=== PATIENT | female | born 1990 | race Caucasian/White ===

== ENCOUNTER → 2020-10-12 | Outpatient (CLI) | payer OTHER ==
[~2020-10-12] MED LIST: CLINORIL 150 M150 MG PO; COLACE 100MG C100 MG PO; FERROUS SULFAT325 M2 PO; IBUPROFEN600 MG PO; LODINE CAP 300300 MG PO; LORTAB 5-325 M1 EACH PO; NAPROSYN500 MG PO
== END ==
LOC: EXRD 11:30
DX: E04.9 Nontoxic goiter, unspecified (principal)
CPT/HCPCS: 76536

== ENCOUNTER → 2021-08-12 | Outpatient (CLI) | payer OTHER | LOC: LAB 15:21 | DX: Z20.822 Contact with and (suspected) exposure to COVID-19 (principal) | CPT/HCPCS: U0003 ==